=== PATIENT | female | born 2000 | race African-American/Black ===

== ENCOUNTER 2020-09-09 20:03 | Emergency (ER) | payer OTHER ==
[2020-09-09 20:41] LABS: Absolute Lymphocytes (CBC) 2.1 K/uL (0.7-4.9); Basophils % 0.7 % (0-1.3); Hematocrit 33.8 % (36.0-45.0); Lymphocytes % 15.4 % (15.3-44.8); MPV 6.9 fL (7.6-11.3); RBC Red Blood Cell Count 5.03 M/uL (3.86-4.86)
[2020-09-09 20:49] LABS: Protime INR 1.25
[2020-09-09] MEDS ORDERED: ASPIRIN 81 MG CHEWABLE TABLET ONE (20:50)
[2020-09-09] MEDS ORDERED: NA CHLORIDE 0.9% 1,000 ML ONE (20:50)
[2020-09-09] MEDS ORDERED: FENTANYL CITR 100 MCG/2 ML ONE (20:50)
[2020-09-09 21:04] LABS: ALT/SGPT 19 U/L (12-78); AST/SGOT 14 U/L (15-37); Albumin 3.5 g/dL (3.4-5.0); Alkaline Phosphatase 109 U/L (45-117); BUN Blood Urea Nitrogen 7 mg/dL (7-18); Bicarbonate 27 mmol/L (21-32); Bilirubin Direct 0.1 mg/dL (0-0.2); Bilirubin Total 0.4 mg/dL (0.2-1.0); Glucose Level 91 mg/dL (74-106); NT PRO-BNP 30 pg/mL (<125); Potassium 3.6 mmol/L (3.5-5.1); Protein, Total 8.4 g/dL (6.4-8.2); Sodium Level 139 mmol/L (136-145); Troponin (Emerg Dept Use Only) < 0.02 ng/mL (0.0-0.045)
[2020-09-09 21:56] LABS: Blood Morphology Comment NOTED (NOT SEEN); Platelet Estimate INCR; White Blood Cell Scan OK (OK)
[2020-09-09 21:57] LABS: Hypochromasia 1+; Ovalocytes SLIGHT
--- NOTE | 2020-09-09 22:04 | ER ---
Nurse's Notes [facility] Name: Vannessa Bird Age: 20 yrs Sex: Female : 2000 Arrival Date: 09/09/2020 Time: 20:05 Bed 5 Private MD: Diagnosis: Iron deficiency anemia;Chest pain, unspecified Presentation: 09/09 20:12 Chief complaint: Patient states: Left sided CP and LUQ abdominal pain since ll1 with SOB. No cough or fever. Coronavirus screen: Client denies travel out of the [place] in the last 14 days. difficulty breathing, Client presents with at least one sign or symptom that may indicate coronavirus-19. Standard/surgical mask placed on the client. Ebola Screen: Patient denies travel to an Ebola-affected area in the 21 days before illness onset. Initial Sepsis Screen: Does the patient meet any 2 criteria? HR > 90 bpm. No. Patient's initial sepsis screen is negative. Does the patient have a suspected source of infection? Yes: Acute abdominal pain Other: CP. Risk Assessment: Do you want to hurt yourself or someone else? Patient reports no desire to harm self or others. Onset of symptoms was September 07, 2020. 20:12 Method Of Arrival: Ambulatory ll1 20:12 Acuity: CAITLIN 3 ll1 Triage Assessment: 20:50 General: Appears in no apparent distress. Behavior is appropriate for age. Pain: ea Complains of pain in anterior aspect of left upper chest. Cardiovascular: Patient's skin is warm and dry. Rhythm is sinus tachycardia. 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 - Social history:: Smoking status: Patient denies any tobacco usage or history of. Screenin:47 Abuse screen: Denies threats or abuse. Nutritional screening: No deficits noted. ea Tuberculosis screening: No symptoms or risk factors identified. Fall Risk IV access (20 points). Assessment: 20:50 General: Appears in no apparent distress. Behavior is appropriate for age. Pain: ea Complains of pain in anterior aspect of left upper chest Pain does not radiate. Pain began 2 weeks. Neuro: Level of Consciousness is awake, alert, obeys commands, Oriented to person, place, time. Cardiovascular: Patient's skin is warm and dry. Respiratory: Airway is patent Respiratory effort is even, unlabored, Respiratory pattern is regular, symmetrical. Derm: Skin is pink, warm \T\ dry. 21:54 Reassessment: Patient and/or family updated on plan of care and expected duration. Pain ea level reassessed. Patient is alert, oriented x 3, equal unlabored respirations, skin warm/dry/pink. 23:50 Reassessment: Patient and/or family updated on plan of care and expected duration. Pain ea level reassessed. Patient is alert, oriented x 3, equal unlabored respirations, skin warm/dry/pink. Discharge instruction given to patient verbalized the understanding of instruction. Pt left ED accompanied by mother. Vital Signs: 20:12 BP 144 / 101; Pulse 121; Resp 18; Temp 99.2; Pulse Ox 99% ; Pain 8/10; ll1 21:54 BP 110 / 71; Pulse 86; Resp 18; Pulse Ox 99% on R/A; ea 22:39 BP 122 / 83; Pulse 88; Resp 18; Pulse Ox 100% ; ea 23:45 BP 116 / 86; Pulse 87; Resp 18; Temp 98.7; Pulse Ox 99% ; ea ED Course: 20:05 Patient arrived in ED. cf2 20:14 Triage completed. ll1 20:14 Arm band placed on Patient placed in an exam room, on a stretcher. ll1 20:20 [facility]C [facility] snw 20:20 David Terrell MD is Attending Physician. snw 20:35 Inserted saline lock: 20 gauge in right antecubital area, using aseptic technique. ea Blood collected. 20:38 Shanon Ramirez, RN is Primary Nurse. ea 20:49 Patient has correct armband on for positive identification. Bed in low position. Call ea light in reach. environmental health technician on. 20:49 Patient maintains SpO2 saturation greater than 95% on room air. ea 21:08 XRAY Chest (1 view) In Process Unspecified. EDMS 23:52 No provider procedures requiring assistance completed. IV discontinued, intact, ea bleeding controlled, No redness/swelling at site. Pressure dressing applied. Administered Medications: 20:46 Drug: fentaNYL (PF) 25 mcg {Note: rass 0.} Route: IVP; Site: right antecubital; ea 23:53 Follow up: Response: No adverse reaction; RASS: Alert and Calm (0) ea 20:46 Drug: Aspirin Chewable Tablet 324 mg Route: PO; ea 23:53 Follow up: Response: No adverse reaction ea 20:47 Drug: NS 0.9% 1000 ml Route: IV; Rate: 1 bolus; Site: right antecubital; ea 23:53 Follow up: Response: No adverse reaction; IV Status: Completed infusion; IV Intake: ea 1000ml 23:35 Drug: Rocephin 1 grams Route: IV; Rate: calculated rate; Site: right antecubital; ea 23:53 Follow up: Response: No adverse reaction; IV Status: Completed infusion ea Intake: 23:53 IV: 1000ml; Total: 1000ml. ea Outcome: 22:04 Discharge ordered by . manda 23:52 Discharged to home ambulatory, with family. ea 23:52 Condition: stable 23:52 Discharge instructions given to patient, family, Instructed on discharge instructions, follow up and referral plans. medication usage, Demonstrated understanding of instructions, follow-up care, medications, Prescriptions given X 3. 23:54 Patient left the ED. ea Addendum: 09/13/2020 16:31 Addendum: COVID-19 Result: Negative result given to RN to notify pt. Left voice mail. h b Signatures: Dispatcher [employer] EDMS Christy Fletcher, GAMA-C SENIOR EMBEDDED SOFTWARE ENGINEER-Thiagow Shaniqua Chiang RN RN Shanon Ramirez RN RN ea Frazier, Cel[place] 2 Frances Samuel RN RN ll1
--- NOTE | 2020-09-09 22:04 | EDPHYS ---
Physician Documentation [facility] Name: Vannessa Bird Age: 20 yrs Sex: Female : 2000 Arrival Date: 09/09/2020 Time: 20:05 Bed 5 Private MD: ED Physician David Terrell HPI: 09/09 21:37 This 20 yrs old Black Female presents to ER via Ambulatory with complaints of Chest snw Pain, Abdominal Pain, Shortness Of Breath. 21:37 Onset: The symptoms/episode began/occurred gradually, 3 day(s) ago, and became snw persistent. Associated signs and symptoms: Pertinent positives: abdominal pain, chest pain, shortness of breath. The patient has not experienced similar symptoms in the past. It is unknown whether or not the patient has recently seen a physician. 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 - Social history:: Smoking status: Patient denies any tobacco usage or history of. ROS: 21:37 Constitutional: Negative for fever, chills, and weight loss, Eyes: Negative for injury, snw pain, redness, and discharge, ENT: Negative for injury, pain, and discharge, Neck: Negative for injury, pain, and swelling, Respiratory: Negative for shortness of breath, cough, wheezing, and pleuritic chest pain, Abdomen/GI: Negative for abdominal pain, nausea, vomiting, diarrhea, and constipation, Back: Negative for injury and pain, : Negative for injury, bleeding, discharge, and swelling, MS/Extremity: Negative for injury and deformity, Skin: Negative for injury, rash, and discoloration, Neuro: Negative for headache, weakness, numbness, tingling, and seizure, Psych: Negative for depression, anxiety, suicide ideation, homicidal ideation, and hallucinations. 21:37 Cardiovascular: Positive for chest pain, of the anterior aspect of left upper chest. Exam: 21:36 Constitutional: This is a well developed, well nourished patient who is awake, alert, snw and in no acute distress. Head/Face: Normocephalic, atraumatic. Eyes: Pupils equal round and reactive to light, extra-ocular motions intact. Lids and lashes normal. Conjunctiva and sclera are non-icteric and not injected. Cornea within normal limits. Periorbital areas with no swelling, redness, or edema. ENT: Nares patent. No nasal discharge, no septal abnormalities noted. Tympanic membranes are normal and external auditory canals are clear. Oropharynx with no redness, swelling, or masses, exudates, or evidence of obstruction, uvula midline. Mucous membranes moist. Neck: Trachea midline, no thyromegaly or masses palpated, and no cervical lymphadenopathy. Supple, full range of motion without nuchal rigidity, or vertebral point tenderness. No Meningismus. Chest/axilla: Normal chest wall appearance and motion. Nontender with no deformity. No lesions are appreciated. Cardiovascular: Tachycardic rate and rhythm with a normal S1 and S2. No gallops, murmurs, or rubs. Normal PMI, no JVD. No pulse deficits. Respiratory: Lungs have equal breath sounds bilaterally, clear to auscultation and percussion. No rales, rhonchi or wheezes noted. No increased work of breathing, no retractions or nasal flaring. Abdomen/GI: Soft, non-tender, with normal bowel sounds. No distension or tympany. No guarding or rebound. No evidence of tenderness throughout. Back: No spinal tenderness. No costovertebral tenderness. Full range of motion. Skin: Warm, dry with normal turgor. Normal color with no rashes, no lesions, and no evidence of cellulitis. MS/ Extremity: Pulses equal, no cyanosis. Neurovascular intact. Full, normal range of motion. Neuro: Awake and alert, GCS 15, oriented to person, place, time, and situation. Cranial nerves II-XII grossly intact. Motor strength 5/5 in all extremities. Sensory grossly intact. Cerebellar exam normal. Normal gait. Psych: Awake, alert, with orientation to person, place and time. Behavior, mood, and affect are within normal limits. Vital Signs: 20:12 BP 144 / 101; Pulse 121; Resp 18; Temp 99.2; Pulse Ox 99% ; Pain 8/10; ll1 21:54 BP 110 / 71; Pulse 86; Resp 18; Pulse Ox 99% on R/A; ea 22:39 BP 122 / 83; Pulse 88; Resp 18; Pulse Ox 100% ; ea 23:45 BP 116 / 86; Pulse 87; Resp 18; Temp 98.7; Pulse Ox 99% ; ea MDM: 20:32 Patient medically screened. snw 22:05 Data reviewed: vital signs, nurses notes. Data interpreted: Pulse oximetry: on room air snw is 99 %. Interpretation: normal. Counseling: I had a detailed discussion with the patient and/or guardian regarding: the historical points, exam findings, and any diagnostic results supporting the discharge/admit diagnosis, lab results, radiology results, the need for outpatient follow up, to return to the emergency department if symptoms worsen or persist or if there are any questions or concerns that arise at home. Special discussion: Based on the history and exam findings, there is no indication for further emergent testing or inpatient evaluation. I discussed with the patient/guardian the need to see the primary care provider for further evaluation of the symptoms. 09/09 20:21 Order name: Basic Metabolic Panel; Complete Time: 21:06 snw 09/09 20:21 Order name: CBC with Diff; Complete Time: 22:02 snw 09/09 20:21 Order name: LFT's; Complete Time: 21:06 snw 09/09 20:21 Order name: Magnesium; Complete Time: 21:06 snw 09/09 20:21 Order name: NT PRO-BNP; Complete Time: 21:06 snw 09/09 20:21 Order name: PT-INR; Complete Time: 20:58 snw 09/09 20:21 Order name: Troponin (emerg Dept Use Only); Complete Time: 21:06 snw 09/09 20:21 Order name: XRAY Chest (1 view); Complete Time: 22:37 snw 09/09 20:21 Order name: TSH; Complete Time: 21:06 snw 09/09 20:21 Order name: Test, Serum; Complete Time: 22:45 snw 09/09 21:56 Order name: CBC Smear Scan; Complete Time: 22:02 EDMS 09/09 22:53 Order name: COVID-19 snw 09/09 20:21 Order name: EKG; Complete Time: 20:23 snw 09/09 20:21 Order name: Cardiac monitoring; Complete Time: 20:47 snw 09/09 20:21 Order name: EKG - Nurse/Tech; Complete Time: 20:47 snw 09/09 20:21 Order name: IV Saline Lock; Complete Time: 20:47 snw 09/09 20:21 Order name: Labs collected and sent; Complete Time: 20:47 snw 09/09 20:21 Order name: O2 Per Protocol; Complete Time: 20:47 snw 09/09 20:21 Order name: O2 Sat Monitoring; Complete Time: 20:54 snw Administered Medications: 20:46 Drug: fentaNYL (PF) 25 mcg {Note: rass 0.} Route: IVP; Site: right antecubital; ea 23:53 Follow up: Response: No adverse reaction; RASS: Alert and Calm (0) ea 20:46 Drug: Aspirin Chewable Tablet 324 mg Route: PO; ea 23:53 Follow up: Response: No adverse reaction ea 20:47 Drug: NS 0.9% 1000 ml Route: IV; Rate: 1 bolus; Site: right antecubital; ea 23:53 Follow up: Response: No adverse reaction; IV Status: Completed infusion; IV Intake: ea 1000ml 23:35 Drug: Rocephin 1 grams Route: IV; Rate: calculated rate; Site: right antecubital; ea 23:53 Follow up: Response: No adverse reaction; IV Status: Completed infusion ea Disposition: 09/10 20:21 Co-signature as Attending Physician, David Terrell MD I agree with the assessment and tw4 plan of care. Disposition: 09/09/20 22:04 Discharged to Home. Impression: Iron deficiency anemia, Chest pain, unspecified. - Condition is Stable. - Discharge Instructions: Iron Deficiency Anemia, Adult, Nonspecific Chest Pain, Community-Acquired Pneumonia, Adult. - Prescriptions for Vitamin 27- 0.8 mg Oral Tablet - take 1 tablet by ORAL route once daily; 60 tablet. Pepcid 20 mg Oral Tablet - take 1 tablet by ORAL route once daily; 20 tablet. Zithromax 500 mg Oral Tablet - take 1 tablet by ORAL route once daily for 5 days; 5 tablet. - Work release form, Medication Reconciliation Form, Thank You Letter, Antibiotic Education, Prescription Opioid Use form. - Follow up: Emergency Department; When: As needed; Reason: Worsening of condition. Follow up: Private Physician; When: 2 - 3 days; Reason: Recheck today's complaints, Continuance of care, Re-evaluation by your physician. Signatures: Dispatcher [employer] EDMS Christy Fletcher, BUILD MASTER-C BUILD MASTER-Csnw Shanon Ramirez, RN RN David Cheema MD MD tw4 Frances Samuel RN RN ll1 Corrections: (The following items were deleted from the chart) 09/09 23:54 22:04 09/09/2020 22:04 Discharged to Home. Impression: Iron deficiency anemia; Chest ea pain, unspecified. Condition is Stable. Forms are Medication Reconciliation Form, Thank You Letter, Antibiotic Education, Prescription Opioid Use. Follow up: Emergency Department; When: As needed; Reason: Worsening of condition. Follow up: Private Physician; When: 2 - 3 days; Reason: Recheck today's complaints, Continuance of care, Re-evaluation by your physician. snw
--- NOTE | 2020-09-09 22:22 | RAD REPORT ---
EXAM DESCRIPTION: Taryn Single View09/09/2020 9:08 pm CLINICAL HISTORY: Chest pain COMPARISON: none FINDINGS: The patient is in a poor degree of inspiration. The left base is hazy. The heart is normal size The abdomen is hazy which could be secondary to overlying soft tissue or ascites IMPRESSION: The left base is hazy. This could be secondary to overlying soft tissue or infiltrate. F urther evaluation could be obtained with either PA and lateral chest series or CT
[2020-09-09] MEDS ORDERED: CEFTRIAXONE/SWI 1gm 1 GM/10 ML SYR ONE (23:38)
[2020-09-10 00:41] VITALS: BP 116/86; TEMP 98.7; O2SAT 99
--- NOTE | 2020-09-11 07:45 | EKG ---
Test Date: 2020-09-09 Test Time: 20:20:33 Catering Administrative Assistant: KEN MEASUREMENT RESULTS: Intervals: Rate: 113 OK: 168 QRSD: 78 QT: 316 QTc: 433 [place]: P: 40 OK: 168 QRS: 78 T: 17 INTERPRETIVE STATEMENTS: Sinus tachycardia Cannot rule out Anterior infarct, age undetermined Abnormal ECG Compared to ECG 08/16/2017 12:02:18 Myocardial infarct finding now present Sinus rhythm no longer present Electronically Signed On 09-11-20 07:43:08 CDT by Mateusz Khan
== END 2020-09-09 23:54 | disposition home or self-care (01) ==
LOC: ER 20:03
DX: D50.9 Iron deficiency anemia, unspecified (principal); Z20.828 Contact with and (suspected) exposure to other viral communicable diseases
CPT/HCPCS: 96365; 96361; 93005; 85025; 80048; 36415; 83735; 84703; 85610; 80076; 84443; 84484; 83880; 71045; 96375; 99285; U0002; J3010; J0696; J7030